=== PATIENT | female | born 1965 | race Caucasian/White ===

== ENCOUNTER → 2018-12-31 17:16 | Outpatient (CLI) | payer MEDICARE, MEDICAID, SELFPAY ==
[2018-12-31 18:02] LABS: Microscopic, Urine URINE MICROSCOPIC (MICROSCOPIC)
[2018-12-31 19:17] LABS: Amphetamine/Metha Screen,Urine Negative ng/mL (<1000); Barbiturates Screen,Urine Negative ng/mL (<200); Benzodiazepines Screen,Urine Negative ng/mL (<200); Cannabinoid Screen,Urine Negative ng/mL (<50); Cocaine Screen,Urine Negative ng/mL (<300); Methadone Screen,Urine Negative ng/mL (<300); Opiate Screen,Urine Negative ng/mL (<300); Phencyclidine Screen,Urine Negative ng/mL (<25)
[2018-12-31 19:36] LABS: Appearance,Urine CLEAR (Clear); Bilirubin,Urine Negative (Negative); Blood, Urine Negative (Negative); Color,Urine YELLOW (Yellow); Glucose,Urine (UA) Negative (Negative); Ketones,Urine Negative (Negative); Leukocyte Esterase,Urine Negative (Negative); Nitrate,Urine Negative (Negative); Protein,Urine Negative (Negative); Specific Gravity, Urine 1.015 (1.005-1.030); Urobilinogen,Urine 0.2 EU/dl (0.2)
[2018-12-31 19:37] LABS: Bacteria,Urine Trace /lpf; Squamous Epithelial Cell,Urine Occasional #/hpf (0-5); WBC,Urine Occasional #/hpf (0-3)
== END ==
PROVIDERS: Visit Provider Emergency Medicine
DX: R30.0 Dysuria (principal); Z79.899 Other long term (current) drug therapy
CPT/HCPCS: 80305; 81001

== ENCOUNTER → 2019-01-10 13:42 | Outpatient (CLI) | payer MEDICARE, MEDICAID, SELFPAY ==
--- NOTE | 2019-01-10 13:44 | MR_ITS ---
MR lumbar spine wo con, MR 3-d myelogram/MRCP HISTORY: Back pain from neck to low back. Bilateral leg and hip pain. Symptoms X 2-3 months. ITS.REASON: back pain ORDERING PHYSICIAN: Jordan Lloyd MD PATIENT AGE: 53 years Comparison: None TECHNIQUE: Standard multiplanar multiecho sequences are performed without contrast. 3-D MIP and myelographic images are also rendered and reviewed FINDINGS: Spinal cord ends at L1 level. T12-L1, L1-L2, L2-L3, L3-L4, and L4-L5 unremarkable appearance. L5-S1: Grade 1 spondylitic spondylolisthesis of 7 mm with bulging disc and moderate to severe bilateral foraminal narrowing slightly greater on the right. No extruded herniated disc or bony canal stenosis. IMPRESSION: Grade 1 spondylitic spondylolisthesis of 7 mm of L5 on S1 with bulging disc and moderate to severe bilateral foraminal narrowing slightly greater on the right No canal stenosis or extruded herniated disc
== END ==
PROVIDERS: PCP Emergency Medicine; Visit Provider Emergency Medicine
DX: M54.16 Radiculopathy, lumbar region (principal); M54.5 Low back pain; R05 Cough
CPT/HCPCS: 72148; 76376

== ENCOUNTER → 2019-01-24 13:42 | Outpatient (POV) | payer MEDICARE, MEDICAID, SELFPAY ==
[2019-01-24 13:53] VITALS: BP 119/84; PULSE 73; RESP 18; O2SAT 98; BMI 20.1
--- NOTE | 2019-01-24 15:57 | HMH.PMCON ---
Assessment and Plan (1) Spondylisthesis Current visit: No Status: Chronic Qualifiers: Spinal region: lumbar Qualified Code(s): M43.16 - Spondylolisthesis, lumbar region Category: Medical Code(s): M43.10 - Spondylolisthesis, site unspecified (2) Lumbar radicular pain Current visit: No Status: Chronic Category: Medical Code(s): M54.16 - Radiculopathy, lumbar region - Assessment and plan all Dx Assessment and Plan for all problems:: Schedule her an L4-L5 epidural steroid injection I believe given the efficacy of this in the past will be beneficial. We will follow-up with the patient after injection reassess her symptoms at that time she is been instructed to call the office if she has any issues prior to her next appointment. We will start her on some diclofenac 75 mg [address] Leon has reviewed this note and agrees with this plan of care. This note was dictated using voice recognition software and may contain errors or omissions HPI - Data of Consult Consult date: 01/24/19 Requesting Physician: Mita Mata APRN Primary Care Provider: Jordan Lloyd MD - Consult Narrative Reason for consult: Back pain, leg pain History of present illness: Ms. Weston is a 53 year old female who presents today for consultation in regards to her back and leg pain. Patient rates her pain today at 8 out of 10 he states that her low back rating down into her legs worse on the left side she is had this before 10 years ago where she received epidural injections which alleviated her pain. She does have an L5-S1 bulging disc with foraminal narrowing. She is tried and failed massage therapy and medication therapy. She is continuing a home stretching program. She is not on any anticoagulation therapy. She had this pain for over 6 months and it has not been relieved with conservative measures. CC: Mita Mata APRN [facility] History I have reviewed the patient's past medical history: Yes Medical History: Reports:: Anxiety *Have you ever received a pneumonia vaccine?: Yes *Have you received a flu vaccine this season?: Yes Other Surgeries: Yes: (x 3), Dilation and Curettage, Hysterectomy-Total, Tubal Ligation Amputation: No Fractures: No - *Social History Smoking Status: Current every day smoker Tobacco Type: cigarettes # Packs/Day (cigarettes): 1 Alcohol Intake: never Substance Use Type: former substance user, opiates *Occupational Status:: other Housing: house *Travel in the last 8 weeks: None - Psychiatric History Pschychiatric History:: Reports:: Anxiety Family Hx:: Heart Attack, Coronary Artery Disease, Cancer Review of Systems - Review of Systems ROS General: no recent weight change, no fever, no sleep disturbances Respiratory: no cough, no shortness of air, no recurring pulmonary infections Cardiovascular/Peripheral Vascular: No chest pain, No palpitations, no edema, no shortness of breath. Gastrointestinal: no incontinence, normal bowel movements reported Genitourinary: no incontinence Musculoskeletal: Back pain, leg pain Psychiatric: normal mood/ affect Neurological: [denies weakness in extremities], [denies balance issues] Meds Home Medications Medication Instructions Recorded Confirmed Type acetaminophen 300 mg-codeine 30 mg 1 tab PO BID 10 Days #20 tab 12/31/18 12/31/18 Rx tablet bupropion HCl 75 mg tablet 75 mg PO BID #60 tab 12/31/18 12/31/18 Rx clonazepam 0.5 mg tablet 0.5 mg PO BID #60 tab 12/31/18 12/31/18 Rx gabapentin 100 mg capsule 100 mg PO QHS #30 cap 12/31/18 12/31/18 Rx Allergies Allergy/AdvReac Type Severity Reaction Status Date / Time No Known Allergies Allergy Verified 12/31/18 13:30 Objective Vital signs: Pulse Resp BP Pulse Ox 73 18 119/84 98 01/24/19 13:53 01/24/19 13:53 01/24/19 13:53 01/24/19 13:53 Narrative: Physical Exam General: Alert and oriented x3, no acute distress, pl
--- NOTE | 2019-01-24 16:00 | P.CONS_ITS ---
Assessment and Plan (1) Spondylisthesis Current visit: No Status: Chronic Qualifiers: Spinal region: lumbar Qualified Code(s): M43.16 - Spondylolisthesis, lumbar region Category: Medical Code(s): M43.10 - Spondylolisthesis, site unspecified (2) Lumbar radicular pain Current visit: No Status: Chronic Category: Medical Code(s): M54.16 - Radiculopathy, lumbar region - Assessment and plan all Dx Assessment and Plan for all problems:: Schedule her an L4-L5 epidural steroid injection I believe given the efficacy of this in the past will be beneficial. We will follow-up with the patient after injection reassess her symptoms at that time she is been instructed to call the office if she has any issues prior to her next appointment. We will start her on some diclofenac 75 mg [address] Leon has reviewed this note and agrees with this plan of care. This note was dictated using voice recognition software and may contain errors or omissions HPI - Data of Consult Consult date: 01/24/19 Requesting Physician: Mita Mata APRN Primary Care Provider: Jordan Lloyd MD - Consult Narrative Reason for consult: Back pain, leg pain History of present illness: Ms. Weston is a 53 year old female who presents today for consultation in regards to her back and leg pain. Patient rates her pain today at 8 out of 10 he states that her low back rating down into her legs worse on the left side she is had this before 10 years ago where she received epidural injections which alleviated her pain. She does have an L5-S1 bulging disc with foraminal narrowing. She is tried and failed massage therapy and medication therapy. She is continuing a home stretching program. She is not on any anticoagulation therapy. She had this pain for over 6 months and it has not been relieved with conservative measures. CC: Mita Mata APRN [facility] History I have reviewed the patient's past medical history: Yes Medical History: Reports:: Anxiety *Have you ever received a pneumonia vaccine?: Yes *Have you received a flu vaccine this season?: Yes Other Surgeries: Yes: (x 3), Dilation and Curettage, Hysterectomy- Total, Tubal Ligation Amputation: No Fractures: No - *Social History Smoking Status: Current every day smoker Tobacco Type: cigarettes # Packs/Day (cigarettes): 1 Alcohol Intake: never Substance Use Type: former substance user, opiates *Occupational Status:: other Housing: house *Travel in the last 8 weeks: None - Psychiatric History Pschychiatric History:: Reports:: Anxiety Family Hx:: Heart Attack, Coronary Artery Disease, Cancer Review of Systems - Review of Systems ROS General: no recent weight change, no fever, no sleep disturbances Respiratory: no cough, no shortness of air, no recurring pulmonary infections Cardiovascular/Peripheral Vascular: No chest pain, No palpitations, no edema, no shortness of breath. Gastrointestinal: no incontinence, normal bowel movements reported Genitourinary: no incontinence Musculoskeletal: Back pain, leg pain Psychiatric: normal mood/ affect Neurological: [denies weakness in extremities], [denies balance issues] Meds Home Medications Medication Instructions Recorded Confirmed Type acetaminophen 300 mg-codeine 30 mg 1 tab PO BID 10 Days #20 tab 12/31/18 12/31/18 Rx tablet bupropion HCl 75 mg tablet 75 mg PO BID #60 tab 12/31/18 12/31/18 Rx clonazepam 0.5 mg
== END ==
PROVIDERS: PCP Emergency Medicine; Visit Provider Clinical Nurse Specialist Family Health
DX: M47.816 Spondylosis without myelopathy or radiculopathy, lumbar region
CPT/HCPCS: 99202

== ENCOUNTER 2020-08-06 15:32 | Emergency (ER) | payer MEDICARE, SELFPAY ==
[2020-08-06 15:50] VITALS: BP 102/85; PULSE 79; RESP 16; TEMP 36.8; O2SAT 100; BMI 20.1
[2020-08-06 15:51] LABS: Apearance,Urine Cloudy (Clear); Bilirubin,Urine Negative (Negative); Blood, Urine 3+ (Negative); Color,Urine Dark Yellow (Yellow); Glucose,Urine (UA) Negative (Negative); Ketones,Urine Negative (Negative); PH,Urine 6.5 (5.0-8.5); Protein,Urine 1+ (Negative); UTC Leukocyte Esterase,Urine 3+ (Negative); UTC Nitrate,Urine Positive (Negative); Urobilinogen,Urine 0.2 EU/dl (0.2)
--- NOTE | 2020-08-06 16:12 | HMH.EDUTC ---
[facility] [place] Disposition Clinical Impression: UTI (urinary tract infection) Qualifiers: Urinary tract infection type: site unspecified Hematuria presence: with hematuria Qualified Code(s): N39.0 - Urinary tract infection, site not specified Disposition: Home, Self-Care Condition on Discharge: Good Instructions: Urinary Tract Infection, DI for Urinary Tract Infection (UTI) Additional Instructions: Drink plenty of fluids. Take tylenol or ibuprofen for pain or fever. Take the medications as directed. Follow up with your regular doctor. GO TO THE ER FOR ANY WORSENING SYMPTOMS The pyridium will make your urine turn orange, this is an expected side effect. It will stain your clothes if it comes into contact with them. Prescriptions: Ondansetron [Zofran 4mg ODT] 4 mg PO Q8HP PRN #12 tab.rapdis PRN Reason: Nausea Transmission Status: Received by [facility] #[id number] Ciprofloxacin HCl [Cipro 500mg Tab] 500 mg PO BID 7 Days #14 tab Transmission Status: Received by [facility] #[id number] Phenazopyridine HCl [Pyridium 200mg Tablet] 200 pow PO TID #6 tab Transmission Status: Received by [facility] #[id number] Referrals: PCP,No [Primary Care Provider] - Time of Disposition: 16:22 Medical Decision Making - Medical Records Medical records reviewed: No: I reviewed the patient's medical records. - Rodriguez Inquiry Pt receiving controlled substance: No Vital Signs: 08/06/20 15:50 08/06/20 16:38 Temperature 98.2 F 98 F Temperature Source Oral Pulse Rate 74 Pulse Rate [Right] 79 Respiratory Rate 16 16 Blood Pressure 106/87 L Blood Pressure [Right Arm] 102/85 L Blood Pressure Mean [Right Arm] 90 Blood Pressure Source [Right Arm] Automatic Cuff Blood Pressure Position [Right Arm] Sitting 02 Sat by Pulse Oximetry 100 Oxygen Delivery Method Room Air - Lab Data Lab Results 08/06/20 15:35: Urine Color Dark yellow, Urine Appearance Cloudy, Urine pH 6.5, Ur Specific [place] 1.030, Urine Protein 1+, Urine Glucose (UA) Negative, Urine Ketones Negative, Urine Blood 3+, Urine Nitrate Positive A, Urine Bilirubin Negative, Urine Urobilinogen 0.2, Ur Leukocyte Esterase 3+ A Orders (Tests/Meds): ORDERS Category Date Time Status Urine Culture Stat Micro 08/06/20 15:[address] [facility] [place] HPI - General Stated complaint: possible UTI Time Seen by Provider: 08/06/20 16:13 Mode of Arrival: Ambulatory Source of Information: Patient Limitations: No Limitations Description of Symptoms (Recalled from Triage Doc. by RN): pt is having bilateral flank pain, vaginal discharge, burning and pain on urination. HEENT Symptoms (Recalled from RN notes): No Resp Symptoms (Recalled from RN notes): No Skin Symptoms (Recalled from RN notes): No MS Symptoms (Recalled from RN notes): Yes (flank pain) Functional Status (Recalled from RN notes): na - History of Present Illness Provider Complaint: She states that since yesterday she has had low back pain, dysuria and she has felt bad. She feels like she has a uti. - Related Data Home Medications Medication Instructions Recorded Confirmed Gabapentin [Gabapentin 100mg Cap] 100 mg PO QHS 02/04/19 02/04/19 buPROPion HCL [Wellbutrin SR 75mg 75 mg PO BID 02/04/19 02/04/19 Tablet] clonazePAM [Clonazepam] 0.5 mg PO BID 02/04/19 02/04/19 Previous Rx's Medication Instructions Recorded hydrocodone 5 mg-acetaminophen 325 1 tab PO BID PRN #22 tab 01/25/19 mg tablet Ciprofloxacin HCl [Cipro 500mg 500 mg PO BID 7 Days #14 tab 08/06/20 Tab] Ondansetron [Zofran 4mg ODT] 4 mg PO Q8HP PRN #12 tab.rapdis 08/06/20 Phenazopyridine HCl [Pyridium 200 pow PO TID #6 tab 08/06/20 200mg Tablet] Allergies Allergy/AdvReac Type Severity Reaction Status Date / Time No Known Allergies Allergy Verified 08/06/20 15:35 - Worker's Comp Is this a Worker's Comp case?: No [facility] History - Hepatitis A Screen Drug use hist
[2020-08-06 16:38] VITALS: BP 106/87; PULSE 74; RESP 16; TEMP 36.6
== END 2020-08-06 16:30 | disposition home or self-care (01) ==
PROVIDERS: Emergency Provider Nurse Practitioner Family
DX: N30.00 Acute cystitis without hematuria (principal); F41.9 Anxiety disorder, unspecified
CPT/HCPCS: G0463; 81003; 87086; 87088; 87186; 99202

== ENCOUNTER 2020-09-23 18:59 | Emergency (ER) | payer MEDICARE, SELFPAY ==
[2020-09-23 19:28] LABS: Apearance,Urine Clear (Clear); Bilirubin,Urine Negative (Negative); Blood, Urine Trace (Negative); Color,Urine Yellow (Yellow); Glucose,Urine (UA) Negative (Negative); Ketones,Urine Negative (Negative); PH,Urine 6.5 (5.0-8.5); Protein,Urine Negative (Negative); UTC Leukocyte Esterase,Urine 1+ (Negative); Urobilinogen,Urine 1 EU/dl (0.2)
[2020-09-23 19:29] LABS: UTC Nitrate,Urine Negative (Negative)
--- NOTE | 2020-09-23 19:31 | HMH.EDUTC ---
[facility] [place] Disposition Clinical Impression: Herpes labialis UTI (urinary tract infection) Qualifiers: Urinary tract infection type: acute cystitis Hematuria presence: without hematuria Qualified Code(s): N30.00 - Acute cystitis without hematuria Disposition: Home, Self-Care Condition on Discharge: Good Instructions: DI for Urinary Tract Infection (UTI) Additional Instructions: Your urine culture results should be available on Thursday Prescriptions: Ciprofloxacin HCl [Cipro 500mg Tab] 500 mg PO BID 5 Days #10 tab Transmission Status: Pending to [facility] #[id number] Valacyclovir HCl [Valtrex] 1,000 mg PO BID 5 Days #10 tab Transmission Status: Pending to [facility] #[id number] Valacyclovir HCl [Valtrex] 1,000 mg PO BID 5 Days #10 tab Transmission Status: Pending to [facility] #[id number] Referrals: PCP,No [Primary Care Provider] - Time of Disposition: 19:40 Medical Decision Making - Rodriguez Inquiry Pt receiving controlled substance: No - Lab Data Lab results reviewed: Yes: I reviewed the patient's lab results. Lab Results 09/23/20 19:26: Urine Color Yellow, Urine Appearance Clear, Urine pH 6.5, Ur Specific [place] 1.020, Urine Protein Negative, Urine Glucose (UA) Negative, Urine Ketones Negative, Urine Blood Trace, Urine Nitrate Negative, Urine Bilirubin Negative, Urine Urobilinogen 1, Ur Leukocyte Esterase 1+ A Orders (Tests/Meds): ORDERS Category Date Time Status Urine Culture Stat Micro 09/23/20 19:26 Ordered [facility] [place] HPI - General Stated complaint: rash on mouth possible uti Time Seen by Provider: 09/23/20 19:31 - History of Present Illness Provider Complaint: Patient has had dysuria, body aches, LBP X 2-3 days. No fever. After she started having UTI symptoms, her mouth broke out in a rash as well. Onset (ago): day(s) (2) Location: abdomen Relieving factors: none Exacerbating factors: none Associated symptoms: denies other symptoms Treatments prior to arrival: none - Related Data Home Medications Medication Instructions Recorded Confirmed Gabapentin [Gabapentin 100mg Cap] 100 mg PO QHS 02/04/19 02/04/19 buPROPion HCL [Wellbutrin SR 75mg 75 mg PO BID 02/04/19 02/04/19 Tablet] clonazePAM [Clonazepam] 0.5 mg PO BID 02/04/19 02/04/19 Previous Rx's Medication Instructions Recorded hydrocodone 5 mg-acetaminophen 325 1 tab PO BID PRN #22 tab 01/25/19 mg tablet Ciprofloxacin HCl [Cipro 500mg 500 mg PO BID 7 Days #14 tab 08/06/20 Tab] Ondansetron [Zofran 4mg ODT] 4 mg PO Q8HP PRN #12 tab.rapdis 08/06/20 Phenazopyridine HCl [Pyridium 200 pow PO TID #6 tab 08/06/20 200mg Tablet] Ciprofloxacin HCl [Cipro 500mg 500 mg PO BID 5 Days #10 tab 09/23/20 Tab] Valacyclovir HCl [Valtrex] 1,000 mg PO BID 5 Days #10 tab 09/23/20 Valacyclovir HCl [Valtrex] 1,000 mg PO BID 5 Days #10 tab 09/23/20 Allergies Allergy/AdvReac Type Severity Reaction Status Date / Time No Known Allergies Allergy Verified 08/06/20 15:35 [facility] History - Hepatitis A Screen Attestation statement:: This patient has been screened for Hepatitis A risk factors. I have reviewed the patient's past medical history: Yes Medical History: Reports:: Anxiety Denies:: Cancer, Diabetes Mellitus Type 1, Diabetes Mellitus Type 2, MRSA, Seizures Other Surgeries: Yes: , Dilation and Curettage, Hysterectomy-Total, Tubal Ligation Amputation: No Fractures: No - Social History Smoking Status: Unknown if ever smoked Tobacco Type: cigarettes # Packs/Day (cigarettes): 1 Alcohol Intake: never Substance Use Type: former substance user, opiates Occupational Status: other Housing: house - Psychiatric History Pschychiatric History:: Reports:: Anxiety Family Hx:: Heart Attack, Coronary Artery Disease, Cancer ROS Obtained: Yes All systems reviewed & no additional complaints - ENT Ears, Nose, Mouth, and Throat: Reports as per HPI, Reports mouth lesions - Genitourinary Female Ge
[2020-09-23 19:37] VITALS: BP 116/74; PULSE 92; RESP 17; TEMP 37.1; O2SAT 97; BMI 19.2
[2020-09-23 19:43] VITALS: BP 116/74; PULSE 92; RESP 17; TEMP 37.1; O2SAT 97
== END 2020-09-23 19:53 | disposition home or self-care (01) ==
PROVIDERS: Emergency Provider Physician Assistant
DX: N30.00 Acute cystitis without hematuria (principal); A49.8 Other bacterial infections of unspecified site; B00.1 Herpesviral vesicular dermatitis; F41.9 Anxiety disorder, unspecified
CPT/HCPCS: G0463; 81003; 87086; 87088; 87186; 99202

== ENCOUNTER 2020-12-18 13:35 | Emergency (ER) | payer MEDICARE, SELFPAY ==
[2020-12-18 13:35] VITALS: BP 107/73; PULSE 94; RESP 21; TEMP 37; O2SAT 98; BMI 18.0
--- NOTE | 2020-12-18 13:54 | HMH.EDUTC ---
[facility] [place] Clinical Impression: UTI (urinary tract infection) Qualifiers: Urinary tract infection type: site unspecified Hematuria presence: with hematuria Qualified Code(s): N39.0 - Urinary tract infection, site not specified Disposition: Home, Self-Care Condition on Discharge: Good Instructions: Trimethoprim/Sulfamethoxazole (Alternative Therapy), DI for Urinary Tract Infection (UTI) Additional Instructions: *Increase fluids. Water not Soda or Tea *Start antibiotic immediately and be sure to take as ordered for the FULL length of time although you should start to see improvement over the next 48 hours *Pyridium as needed Remember this medication will turn your urine [place]. This is normal but it will stain what ever it gets on *You should not use Pyridium for more than 48 hours. If so , follow up with your primary physician to review urine culture and ensure that antibiotic is adequate for infection *Be SURE to follow up anytime for new or worsening symptoms with your family doctor. AND in 48 hours for urine culture results with your family doctor, if you do not have a doctor then you may call back to the [facility] for urine culture results and further treatment. We do recommend that you choose and establish care with a Primary Care Physician. AND follow up with them in 10-14 days to repeat UA to ensure infection is resolved and blood no longer present *Be sure to let your PCP know that we sent urine cultures from the [facility] so they can follow up to ensure that you area the on the correct antibiotic Call your doctor office and make appointment for 48 hours (2 days from today) to follow up and get the results of your urine culture and further treatment Prescriptions: Sulfamethoxazole/Trimethoprim [Bactrim DS tablet] 1 each PO BID 7 Days #14 tab Transmission Status: Pending to [id number] Phenazopyridine HCl [Pyridium 200mg Tablet] 200 pow PO TID #6 tab Transmission Status: Pending to [id number] Referrals: Dyan Vizcarra [Primary Care Provider] - As needed Time of Disposition: 14:07 Medical Decision Making - Rodriguez Inquiry Pt receiving controlled substance: No Rodriguez was queried for this patient: No Vital Signs: 12/18/20 13:35 Temperature 98.6 F Temperature Source Oral Pulse Rate [Right Brachial] 94 H Respiratory Rate 21 Blood Pressure [Right Arm] 107/73 L Blood Pressure Mean [Right Arm] 84 Blood Pressure Source [Right Arm] Automatic Cuff Blood Pressure Position [Right Arm] Sitting 02 Sat by Pulse Oximetry 98 Oxygen Delivery Method Room Air - Lab Data Lab results reviewed: Yes: I reviewed the patient's lab results. Orders (Tests/Meds): ORDERS Category Date Time Status Urine Culture Stat Micro 12/18/20 13:46 Received [facility] [place] HPI - General Stated complaint: possible uti Time Seen by Provider: 12/18/20 13:54 Mode of Arrival: Ambulatory Source of Information: Patient Limitations: No Limitations Description of Symptoms (Recalled from Triage Doc. by RN): PATIENT C/O PAIN AND FREQUENT URINATION X 1 WEEK HEENT Symptoms (Recalled from RN notes): No Resp Symptoms (Recalled from RN notes): No Skin Symptoms (Recalled from RN notes): No MS Symptoms (Recalled from RN notes): No Functional Status (Recalled from RN notes): WNL - History of Present Illness Provider Complaint: Patient states that she feels like she may have a UTI States that she has been having burning with urination and feeling or urgency and frequency like she gets when she gets a UTI - Related Data Home Medications Medication Instructions Recorded Confirmed Gabapentin [Gabapentin 100mg Cap] 100 mg PO QHS 02/04/19 02/04/19 buPROPion HCL [Wellbutrin SR 75mg 75 mg PO BID 02/04/19 02/04/19 Tablet] clonazePAM [Clonazepam] 0.5 mg PO BID 02/04/19 02/04/19 Previous Rx's Medication Instructions Recorded hydrocodone 5 mg-acetaminophen 325 1 tab PO BID PRN #22 tab 01/25/19 mg tablet Ciprofloxacin HCl [Cipro 500mg
[2020-12-18 14:05] VITALS: BP 107/73; PULSE 94; RESP 21; TEMP 37; O2SAT 98
[2020-12-18 14:12] LABS: Apearance,Urine Clear (Clear); Color,Urine Yellow (Yellow); PH,Urine 6.5 (5.0-8.5); Protein,Urine 1+ (Negative); Specific Gravity, Urine 1.025 (1.005-1.030)
[2020-12-18 14:13] LABS: Bilirubin,Urine 1+ (Negative); Blood, Urine Trace (Negative); Glucose,Urine (UA) Negative (Negative); Ketones,Urine TRACE (Negative); UTC Leukocyte Esterase,Urine 1+ (Negative); UTC Nitrate,Urine Positive (Negative); Urobilinogen,Urine 1 EU/dl (0.2)
== END 2020-12-18 14:10 | disposition home or self-care (01) ==
PROVIDERS: Emergency Provider Nurse Practitioner; PCP Emergency Medicine
DX: N30.00 Acute cystitis without hematuria (principal); F41.9 Anxiety disorder, unspecified
CPT/HCPCS: G0463; 81003; 87086; 87088; 87186; 99202

== ENCOUNTER 2021-03-31 12:50 | Emergency (ER) | payer MEDICARE, MEDICAID, SELFPAY ==
[2021-03-31 12:51] VITALS: BP 120/76; PULSE 99; RESP 18; O2SAT 99; BMI 16.5
[2021-03-31 13:10] VITALS: BP 131/79; PULSE 99; RESP 13; O2SAT 98
--- NOTE | 2021-03-31 14:11 | XR_ITS ---
PROCEDURE INFORMATION: Exam: XR Chest Exam date and time: 03/31/2021 2:11 PM Age: 55 years old Clinical indication: Patient HX: Heroin overdose, possible aspiration. Smoker. ; Additional info: Heroin overdose, aspiration TECHNIQUE: Imaging protocol: XR of the chest. Views: 1 view. COMPARISON: CR CXR2V XR chest 2V 09/12/2018 2:05 AM FINDINGS: Lungs: Unremarkable. No consolidation. Pleural spaces: Unremarkable. No pleural effusion. No pneumothorax. Heart/Mediastinum: Unremarkable. No cardiomegaly. Bones/joints: Unremarkable. IMPRESSION: No acute findings.
[2021-03-31 14:19] LABS: Basophils # 0.1 K/mm3 (0-0.2); Basophils % 1.6 % (0.1-2.0); Eosinophils # 0.2 K/mm3 (0.0-0.4); Eosinophils % 3.2 % (0.1-12.0); Hematocrit 46.8 % (37.0-47.0); Hemoglobin 15.4 g/dL (12.2-16.2); Lymphocytes # 1.1 K/mm3 (0.7-4.5); Lymphocytes % 19.8 % (10-50); Mean Corpuscular HGB Conc 32.8 g/dL (31.8-35.4); Mean Corpuscular Hemoglobin 30.9 pg (27.0-31.2); Mean Corpuscular Volume 94.3 fl (81-99); Mean Platelet Volume 9.4 fl (7.4-10.4); Monocytes # 0.2 K/mm3 (0.1-1.0); Monocytes % 3.3 % (1.7-9.3); Neutrophils # 4.2 K/mm3 (1.8-7.8); Neutrophils % 72.2 % (37.0-80.0); Platelet Count 372 K/mm3 (142-424); Red Blood Count 4.97 M/mm3 (4.20-5.40); Red Cell Distribution Width 13.6 % (11.5-17.5); White Blood Count 5.8 K/mm3 (4.8-10.8)
[2021-03-31 14:20] LABS: Chloride 99 mmol/L (98-107); Potassium 4.5 mmoL/L (3.5-5.1); Sodium 139 mmol/L (136-145)
[2021-03-31 14:22] LABS: Alanine Aminotransferase 44 U/L (12-78); Aspartate Amino Transferase 60 U/L (14-36); Bilirubin,Total 0.4 mg/dl (0.2-1.3); Blood Urea Nitrogen 14 mg/dl (7-17); Creatinine Clearance Estimated 68 mL/min (50-200); Estimated Glomerular Filt Rate 104 ml/min (>60); GFR (African American) 126 ML/MIN (>60)
[2021-03-31 14:23] LABS: Albumin Level 4.4 g/dl (3.5-5.0); Alkaline Phosphatase 103 U/L (38-126); Anion Gap 13.5 mEq/L (5-15); Calcium 9.6 mg/dl (8.4-10.2); Carbon Dioxide 31 mmol/L (22.0-30.0); Globulin 4.3 g/dL (1.3-3.2); Glucose 211 mg/dl (74-100); Total Protein,Serum 8.7 g/dl (6.3-8.2)
--- NOTE | 2021-03-31 14:49 | HMH.EDGENADL ---
ED Disposition Clinical Impression: Drug overdose Qualifiers: Encounter type: initial encounter Injury intent: accidental or unintentional Qualified Code(s): T50.901A - Poisoning by unspecified drugs, medicaments and biological substances, accidental (unintentional), initial encounter Disposition: Home, Self-Care Condition on Discharge: Good Additional Instructions: [facility] is located at [phone], [address] [place] [address], they are open 8-5 thu - thursday, i will call tomorrow and give them your info to call to schedule followup. Additionally you can call, [phone] for spine followup at , they have been able to help people similar to you in the past. I will prescribe narcan for you to have at home, it is important to have this with you. Prescriptions: Naloxone HCl [Narcan 2mg/2mL syringe] 2 mg IH ONCE #2 ml Transmission Status: Pending to [id number] Ondansetron [Zofran 4mg ODT] 2 mg PO Q6 PRN #9 tab PRN Reason: Nausea Transmission Status: Pending to [id number] Referrals: Helen Penn [Primary Care Provider] - - Critical Care Critical Care Time: No Attestation: On 03/31/21, the high probability of a clinically significant, sudden or life threatening deterioration of the following system(s) required my full and direct attention, intervention and personal management. The time I documented below is in addition to time spent performing reported procedures but includes the following listed in this critical care notation. Medical Decision Making - Medical Records Medical records reviewed: Yes: I reviewed the patient's medical records. - Rodriguez Inquiry Pt receiving controlled substance: No Vital Signs: 03/31/21 12:51 03/31/21 13:10 Pulse Rate 99 H Pulse Rate [Left Radial] 99 H Respiratory Rate 18 13 Blood Pressure 131/79 Blood Pressure [Right Arm] 120/76 Blood Pressure Mean [Right Arm] 90 Blood Pressure Source [Right Arm] Automatic Cuff Blood Pressure Position [Right Arm] Sitting 02 Sat by Pulse Oximetry 99 98 Oxygen Delivery Method Room Air - Lab Data Lab Results 03/31/21 13:15: WBC 5.8, RBC 4.97, Hgb 15.4, Hct 46.8, MCV 94.3, MCH 30.9, MCHC 32.8, RDW 13.6, Plt Count 372, MPV 9.4, Neut % (Auto) 72.2, Lymph % (Auto) 19.8, Bond % (Auto) 3.3, Eos % (Auto) 3.2, Baso % (Auto) 1.6, Neut # (Auto) 4.2, Lymph # (Auto) 1.1, Bond # (Auto) 0.2, Eos # (Auto) 0.2, Baso # (Auto) 0.1 03/31/21 13:15: Sodium 139, Potassium 4.5, Chloride 99, Carbon Dioxide 31 H, Anion Gap 13.5, BUN 14, Creatinine 0.60, Estimated Creat Clear 68, Estimated GFR 104, Est GFR ( Amer) 126, Glucose 211 H, Calcium 9.6, Total Bilirubin 0.4, AST 60 H, ALT 44, Alkaline Phosphatase 103, Total Protein 8.7 H, Albumin 4.4, Globulin 4.3 H, Albumin/Globulin Ratio 1.0 L Result diagrams: 03/31/21 13:15 03/31/21 13:15 Orders (Tests/Meds): ED MEDICATIONS Discontinued Medications Generic Name Dose Route Start Last Admin Trade Name Freq PRN Reason Stop Dose Admin Ondansetron HCl 8 mg 03/31/21 13:20 03/31/21 13:20 Ondansetron 4mg Odt SL 03/31/21 13:21 8 mg ONCE ONE Administration ORDERS Category Date Time Status CXR --portable [XR chest portable] Stat Exams 03/31/21 14:11 Taken Medical Decision Narrative: Patient is a 55-year-old female presents the ED today after opioid overdose. Patient is well-appearing on my initial evaluation able to speak in full sentences with no shortness of breath. Patient seen immediately upon arrival by EMS was related to the room, she is awake on the stretcher, placed on the monitor with no evidence of hypoxia. Patient is endorsing nausea but is not having any vomiting. We will obtain a CBC CMP and chest x-ray. CBC and CMP with no evidence of significant electrolyte abnormality that requires correction no abnormalities on CBC. Chest x-ray without evidence of focal consolidation or pneumonia no evidence of rib fracture, pne
[2021-03-31 15:17] VITALS: BP 97/64; PULSE 92; RESP 18; TEMP 36.7; O2SAT 98
== END 2021-03-31 15:18 | disposition home or self-care (01) ==
PROVIDERS: Emergency Provider Student in an Organized Health Care Education/Training Program; PCP Family Medicine
DX: T40.1X1A Poisoning by heroin, accidental (unintentional), initial encounter (principal); Y92.019 Unspecified place in single-family (private) house as the place of occurrence of the external cause; F17.210 Nicotine dependence, cigarettes, uncomplicated; M54.50 Low back pain, unspecified
CPT/HCPCS: 71045; 80053; 85025; 99282

== ENCOUNTER 2021-04-06 12:45 | Emergency (ER) | payer MEDICARE, MEDICAID, SELFPAY ==
[2021-04-06 13:31] VITALS: BP 88/58; PULSE 80; RESP 18; TEMP 36.7; O2SAT 96; BMI 17.6
[2021-04-06 13:37] LABS: Apearance,Urine Cloudy (Clear); Color,Urine Amber (Yellow); Protein,Urine 2+ (Negative); Specific Gravity, Urine 1.025 (1.005-1.030)
[2021-04-06 13:38] LABS: Bilirubin,Urine 1+ (Negative); Blood, Urine Negative (Negative); Glucose,Urine (UA) Negative (Negative); Ketones,Urine Negative (Negative); UTC Leukocyte Esterase,Urine 3+ (Negative); UTC Nitrate,Urine Negative (Negative); Urobilinogen,Urine 1 EU/dl (0.2)
--- NOTE | 2021-04-06 14:05 | HMH.EDUTC ---
[facility] [place] Disposition Clinical Impression: UTI (urinary tract infection) Qualifiers: Urinary tract infection type: site unspecified Hematuria presence: with hematuria Qualified Code(s): N39.0 - Urinary tract infection, site not specified Disposition: Home, Self-Care Condition on Discharge: Good Instructions: Urinary Tract Infection, DI for Urinary Tract Infection (UTI) Additional Instructions: Drink plenty of fluids. Take tylenol or ibuprofen for pain or fever. Take the medications as directed. Follow up with your regular doctor. GO TO THE ER FOR ANY WORSENING SYMPTOMS The pyridium will make your urine turn orange, this is an expected side effect. It will stain your clothes if it comes into contact with them. Prescriptions: Ondansetron [Zofran 4mg ODT] 4 mg PO Q8HP PRN #12 tab PRN Reason: Nausea Transmission Status: [facility] by [id number] Ciprofloxacin HCl [Cipro 500mg Tab] 500 mg PO BID 7 Days #14 tab Transmission Status: Received by [id number] Phenazopyridine HCl [Pyridium 200mg Tablet] 200 pow PO TID #6 tab Transmission Status: Received by [id number] Referrals: Provider,Referral, MD [Primary Care Provider] - Time of Disposition: 14:16 Medical Decision Making - Medical Records Medical records reviewed: No: I reviewed the patient's medical records. - Rodriguez Inquiry Pt receiving controlled substance: No Vital Signs: 04/06/21 13:31 04/06/21 14:23 Temperature 98.1 F 98.1 F Temperature Source Oral Pulse Rate 74 Pulse Rate [Left] 80 Respiratory Rate 18 19 Blood Pressure 92/61 L Blood Pressure [Right Arm] 88/58 L Blood Pressure Mean [Right Arm] 68 02 Sat by Pulse Oximetry 96 - Lab Data Lab results reviewed: Yes: I reviewed the patient's lab results. Lab Results 04/06/21 13:37: Urine Color Trudy, Urine Appearance Cloudy, Urine pH 7.0, Ur Specific [place] 1.025, Urine Protein 2+, Urine Glucose (UA) Negative, Urine Ketones Negative, Urine Blood Negative, Urine Nitrate Negative, Urine Bilirubin 1+ A, Urine Urobilinogen 1, Ur Leukocyte Esterase 3+ A Orders (Tests/Meds): ORDERS Category Date Time Status Urine Culture Stat Micro 04/06/21 13:25 Results [facility] [place] HPI - General Stated complaint: pain when urinates Time Seen by Provider: 04/06/21 14:06 Mode of Arrival: Ambulatory Source of Information: Patient Limitations: No Limitations Description of Symptoms (Recalled from Triage Doc. by RN): pt c/o of pain while urinating x1 week. HEENT Symptoms (Recalled from RN notes): No Resp Symptoms (Recalled from RN notes): No Skin Symptoms (Recalled from RN notes): No MS Symptoms (Recalled from RN notes): No Functional Status (Recalled from RN notes): na - History of Present Illness Provider Complaint: She has been having low back pain and dysuria for the past 5 days. She has a history of getting uti's kind of frequently and she feels like she has one now. She denies any fever, chills, n/v/d, and congestion. - Related Data Home Medications Medication Instructions Recorded Confirmed Gabapentin [Gabapentin 100mg Cap] 100 mg PO QHS 02/04/19 02/04/19 buPROPion HCL [Wellbutrin SR 75mg 75 mg PO BID 02/04/19 02/04/19 Tablet] clonazePAM [Clonazepam] 0.5 mg PO BID 02/04/19 02/04/19 Previous Rx's Medication Instructions Recorded hydrocodone 5 mg-acetaminophen 325 1 tab PO BID PRN #22 tab 01/25/19 mg tablet Ciprofloxacin HCl [Cipro 500mg 500 mg PO BID 7 Days #14 tab 08/06/20 Tab] Phenazopyridine HCl [Pyridium 200 pow PO TID #6 tab 08/06/20 200mg Tablet] Ciprofloxacin HCl [Cipro 500mg 500 mg PO BID 5 Days #10 tab 09/23/20 Tab] Valacyclovir HCl [Valtrex] 1,000 mg PO BID 5 Days #10 tab 09/23/20 Valacyclovir HCl [Valtrex] 1,000 mg PO BID 5 Days #10 tab 09/23/20 sulfamethoxazole 800 1 tab PO BID 7 Days #14 tab 09/25/20 mg-trimethoprim 160 mg tablet ondansetron 4 mg disintegrating 4 mg PO Q8HP PRN #12 tab.yamilka
[2021-04-06 14:23] VITALS: BP 92/61; PULSE 74; RESP 19; TEMP 36.7
== END 2021-04-06 14:24 | disposition home or self-care (01) ==
PROVIDERS: Emergency Provider Nurse Practitioner Family
DX: N30.00 Acute cystitis without hematuria (principal); F17.210 Nicotine dependence, cigarettes, uncomplicated
CPT/HCPCS: G0463; 81003; 87086; 87088; 87186; 99202